=== PATIENT | female | born 1955 | race Caucasian/White ===

== ENCOUNTER → 2017-01-02 | Outpatient (CLI) | payer OTHER ==
--- NOTE | 2017-01-03 07:56 | MAMMOGRAPHY REPORT ---
BILATERAL DIGITAL SCREENING MAMMOGRAM WITH CAD: 01/02/2017 CLINICAL HISTORY: Routine screening examination. TECHNIQUE: Bilateral CC and MLO views were obtained. Current study was also evaluated with a Compute r Aided Detection (CAD) system. COMPARISON: Comparison is made to exams dated: 03/04/2015 mammogram, 02/27/2014 mammogram, 04/08/2012 mammogram, 04/07/2011 mammogram, 03/18/2010 mammogram - [facility], and 12/11/2007. BREAST COMPOSITION: There are scattered areas of fibroglandular density in both breasts. FINDINGS: The parenchymal pattern is unchanged. No developing mass, architectural distortion or clus ter of suspicious microcalcifications is seen in either breast. IMPRESSION: ACR BI-RADS CATEGORY 2: BENIGN There is no mammographic evidence of malignancy. A 1 year screening mammogram is recommended. The pa tient will receive written notification of the results. Approximately 10% of breast cancers are not detected with mammography. A negative mammographic report should not delay biopsy if a clinically suggestive mass is present. Tia Villafuerte M.D. ay/:01/02/2017 16:46:27 Fire And Safety Helper: Elsa SILVESTRE(R)(M), [facility] letter sent: Normal 1/2 BI-RADS Code: ACR BI-RADS Category 2: Benign
== END | disposition home or self-care (01) ==
LOC: C.MAMM 16:07
PROVIDERS: ATTEND Family Medicine
DX: Z12.31 Encounter for screening mammogram for malignant neoplasm of breast (principal)

== ENCOUNTER 2022-02-24 05:14 | Observation (INO) ==
--- NOTE | 2022-02-16 09:46 | PAT Medication Instructions ---
Medication Instructions Date of Service February 16, 2022 Home Medications cholecalciferol (vitamin D3) 25 mcg (1,000 unit) capsule 1,000 units PO QAM duloxetine 20 mg capsule,delayed release (Cymbalta) 60 mg PO QAM zolpidem 5 mg tablet (Ambien) 10 mg PO HS lorazepam 1 mg tablet 1 mg PO UD PRN Continue as directed lorazepam 1 mg tablet 1 mg PO UD PRN(if needed) DO NOT take the morning of surgery cholecalciferol (vitamin D3) 25 mcg (1,000 unit) capsule 1,000 units PO QAM Take morning of surgery With a small sip of water, OTHERWISE NOTHING TO EAT OR DRINK AFTER MIDNIGHT: duloxetine 20 mg capsule,delayed release (Cymbalta) 60 mg PO QAM Take evening before surgery zolpidem 5 mg tablet (Ambien) 10 mg PO HS Other Notes If you have any questions please call us at [phone] or [phone] or [phone] or [phone]
--- NOTE | 2022-02-17 11:50 | Anesthesiology Consultation ---
Date of Service February 17, 2022 Assessment & Plan (1) Encounter for pre-operative examination: - difficult IV stick reported by pt, no difficulties at PAT appt. - severe anxiety regarding procedure. - Outpatient joint assessment: Patient is currently scheduled for inpatient pathway. If re-evaluated pending system levels during current pandemic/surgeon requests outpatient pathway, patient states will be staying overnight and this would then be further reviewed. Chart Review Chart Review: Acceptable Risk for Surgery and Patient seen in Pre Admission Testing Teaching & Discussion Pre-Anesthesia Teaching/Discussion Notes: Instructed NPO after midnight before surgery, except medications with 15 cc of water. Medication instructions provided according to the [facility] guidelines. History Surgery Operation Date: 02/24/22 10:40 Proposed Procedures p Left Total Hip Arthroplasty - Barry Thomas MD Height/Weight Height: 5 ft 1 in Weight: 60 kg Allergies Allergy/AdvReac Type Severity Reaction Status Date / Time adhesive Allergy Intermediate retirement Verified 02/16/22 09:02 redness and irritation No Known Drug Allergies Allergy no known Verified 02/16/22 09:02 drug allergies Opioids - Morphine Analogues AdvReac Intermediate nausea and Verified 02/17/22 12:06 vomiting Medications Home Medications Medication Instructions Recorded Confirmed Last Taken cholecalciferol (vitamin D3) 25 1,000 units PO QAM 12/31/18 02/16/22 07/12/20 08:00 mcg (1,000 unit) capsule duloxetine 20 mg capsule,delayed 60 mg PO QAM 12/09/21 02/16/22 Unknown release (Cymbalta) zolpidem 5 mg tablet (Ambien) 10 mg PO HS 12/09/21 02/16/22 Unknown lorazepam 1 mg tablet 1 mg PO UD PRN anxiety 02/16/22 02/16/22 Unknown Past Medical History Medical History Anxiety Depression severe major depression. Gastric ulcer HX 2020 GERD (gastroesophageal reflux disease) controlled, stable per pt Hiatal hernia Irritable bowel syndrome with constipation Medical marijuana use Nausea and vomiting after administration of anesthetic agent denies needing scop patch Patient denies h/o stroke, seizures, heart attack, heart failure, DM, HTN, blood clots or blood transfusions. Exercise / Class Metabolic Activity II 4-5 Yardwork/Stairs/Walk up hill (denies CP or SOB with 1 FOS) Past Family History Family History Mother Alzheimer disease Breast cancer Colorectal cancer Father FHx: stomach cancer Malignant neoplasm of stomach Other No family history of adverse response to anesthesia Denies family history of Ovarian cancer Prostate cancer Myocardial infarction Bleeding disorder Past Surgical History Surgical History History of colonoscopy History of dilatation and curettage History of esophagogastroduodenoscopy (EGD) History of laparoscopy multiple History of operative procedure on hip gel injection through orthopedics. History of tonsillectomy History of tooth extraction History of total abdominal hysterectomy with removal of both ovaries Past Anesthesia History No Hx of Anesthesia Complications and No Family Hx of Anesthesia Complications History of PONV No Hx of Motion Sickness and History of PONV (denies needing scop patch) Social History Smoking Status: Former smoker tobacco type: cigarettes Do You Dip or Chew Tobacco: No Smoking End Date: QUIT > 30 YRS AGO Hx Alcohol Use: No Hx Substance Use: Yes ([employer]APES [employer]- ADVISED) substance use type: marijuana Review of Systems Rare snoring, denies witnessed apneas. Occasional palpitations with anxiety, denies change or worsening. Patient denies chest pain, shortness of breath, dyspnea on exertion, fever, chills, cough, or wheezing. Physical Exam Vital Signs Vitals BP 106/72 P 68 TEMP 97.8 SP02 100% on RA RESP 18 Physical Full cervical extension range of motion without pain TMD 3.5 finger breadths Mallampati Score 2 Dentition: intact, chipped tooth lower right front, permanent bridge upper left; denies loose teeth, caps/crowns or implants Lungs: normal respiratory effort. Clear throughout to auscultation, no adventitious breath sounds Cardiac: regular rate and rhythm, no murmurs noted Carotid arteries: negative bruit bilat Lab Results Anesthesia Preop Results Results Anesthesia Widget: WBC 4.26 K/ul (4.8-10.8) L 02/17/22 Hgb 13.5 g/dl (12.0-16.0) 02/17/22 Hct 39.9 % (34.1-44.9) 02/17/22 Plt 256 K/uL (130-400) 02/17/22 Na 140 mmol/L (136-145) 02/17/22 K 4.7 mmol/L (3.5-5.1) 02/17/22 Cl 105 mmol/L (98-107) 02/17/22 CO2 31 mmol/L (21-32) 02/17/22 BUN 16 mg/dl (6-23) 02/17/22 Creat 0.96 mg/dl (0.6-1.2) 02/17/22 Glucose Level 100 mg/dl (70-99(Fasting)) H 02/17/22 PT 11.1 Seconds (9.0-12.0) 02/17/22 PTT 30.0 Seconds (21.0-31.0) 02/17/22 INR 1.0 (0.9-1.1) 02/17/22 Blood Type A Positive 02/17/22 Antibody Screen NEGATIVE 02/17/22 Testing Electrocardiogram Date: 02/17/22 Sinus rhythm with short AR, rate 66 bpm No significant change vs 02/26/2020 EKG Chest X-Ray Date: 02/17/22 No lines and tubes are seen. The cardiomediastinal silhouette is normal. The lungs are clear. No evidence of pleural effusion or pneumothorax. Thoracolumbar scoliosis is again seen. IMPRESSION: No acute chest disease. Cervical Spine Date: 12/26/21 1. No fractures within the cervical spine. 2. Interval progression of the degenerative disc disease most pronounced at the C4-C5 and C5-C6 levels as described above. 3. There is mild reversal of the normal lordotic curvature due to the multilevel spondylolisthesis. COVID-19 Risk Screen Screening Information COVID-19 Screen Date: 02/17/22 Exposure 21 Days Family/Household +COVID Last 21 Days: No Exposure 10 Days Any COVID Exposure Last 10 Days: No Symptoms Last 10 Days Experienced COVID Sx Last 10 Days: No + COVID 0-90 Days COVID + in Last 0-90 Days: No
[2022-02-24] MEDS ORDERED: ceFAZolin 2000MG 2,000 MG/15 ML SYR IV SCH (06:00)
[2022-02-24] MEDS ORDERED: CeleBREX 200 MG CAP PO SCH (06:00)
[2022-02-24] MEDS ORDERED: ACETAMINOPHEN 500 MG TAB PO SCH (06:00)
[2022-02-24] MEDS ORDERED: LR 60ML/HR IV SCH (06:00)
[2022-02-24] MEDS ORDERED: METOCLOPRAMIDE HCL 10 MG TABLET PO SCH (06:00)
[2022-02-24] MEDS ORDERED: FAMOTIDINE 20 MG TAB PO SCH (06:00)
[2022-02-24] MEDS ORDERED: LR 500ML BOLUS, THEN 15ML/HR IV SCH (06:00)
[2022-02-24] MEDS ORDERED: Scopolamine 1 MG TDSY TD SCH (06:00)
[2022-02-24] MEDS ORDERED: TRANEXAMIC ACID 1,000 MG **IV Pre-op IV SCH (06:00)
[2022-02-24] MEDS ORDERED: MIDAZOLAM HCL 1 MG/ML 2ML VIAL ONE (06:37)
[2022-02-24] MEDS ORDERED: fentaNYL citrate 100 MCG/2 ML VIAL ONE (06:37)
[2022-02-24] MEDS ORDERED: BUPIVACAINE 0.5 % 5 MG/1 ML PF 10ML VIAL ONE (06:44)
[2022-02-24] MEDS ORDERED: MoRPHine SULFATE PF 1 MG/ML 10 ML AMP/VIAL ONE (06:48)
--- NOTE | 2022-02-24 06:56 | History & Physical Bridge Note ---
Date of Service February 24, 2022 History & Physical Bridge Note I have examined the patient, reviewed the History & Physical and in the interval since the performance of the History & Physical I have noted the following changes of clinical significance: no changes noted
[2022-02-24] MEDS ORDERED: EPINEPHrine INJ 1 MG/ML AMP ONE (06:58)
[2022-02-24] MEDS ORDERED: BUPIVACAINE 0.5 % 5 MG/1 ML MPF 30ML VIAL ONE (06:58)
[2022-02-24] MEDS ORDERED: NO NARCOTICS OR SEDATIVES SCH (07:00)
[2022-02-24] MEDS ORDERED: diphenhydrAMINE 50 MG/ML VIAL IV PRN (07:00)
[2022-02-24] MEDS ORDERED: LACTATED RINGER'S 500 ML IV PRN (07:00)
[2022-02-24] MEDS ORDERED: MoRPHine SULFATE PF 1 MG/ML 10 ML AMP/VIAL INT SPINAL ONE (07:00)
[2022-02-24] MEDS ORDERED: HYDROmorphone INJ 0.5 MG/0.5 ML SYR IV PRN (07:00)
[2022-02-24] MEDS ORDERED: NALOXONE HCL 0.08 MG in SYRINGE 1.8 ML IV PRN (07:00)
[2022-02-24] MEDS ORDERED: ePHEDrine sulfate 50 MG/ML AMP IV PRN (07:00)
[2022-02-24] MEDS ORDERED: NALOXONE HCL 1 MG in SODIUM CHLORIDE 0.9% 1000ML 1,000 ML IV PRN (07:00)
[2022-02-24] MEDS ORDERED: NALOXONE HCL 0.4 MG/1 ML VIAL/CARP IV PRN ×2 (07:00→10:56)
[2022-02-24] MEDS ORDERED: SODIUM CHLORIDE 0.9% 1000ML 1,000 ML IV SCH (07:00)
[2022-02-24] MEDS ORDERED: ONDANSETRON INJ 2 MG/ML 2 ML VIAL IV PRN ×2 (07:00→10:56)
[2022-02-24] MEDS ORDERED: DC INTRASPINAL MORPHINE SCH (07:00)
[2022-02-24] MEDS ORDERED: NALBUPHINE HCL INJ 10 MG/ML AMP IV PRN (07:00)
[2022-02-24] MEDS ORDERED: ONDANSETRON INJ 2 MG/ML 2 ML VIAL ONE (07:17)
[2022-02-24] MEDS ORDERED: PROPOFOL IV EMULSION 10 MG/ML 20 ML VIAL IV ONE (07:17)
[2022-02-24] MEDS ORDERED: PHENYLEPHRINE 100MCG/ML 5ML SYR ONE (07:45)
--- NOTE | 2022-02-24 09:03 | Operative Report ---
PG Post Operative Report Pre & Post Diagnosis Operation Date: 02/24/22 07:00 Pre-Op Diagnosis: Left Hip Degenerative Joint Disease Post-Op Diagnosis: Left Hip Degenerative Joint Disease I identified the patient and participated in the time-out.: Yes Procedure Operation Date: 02/24/22 07:00 Actual Procedures p Left Total Hip Arthroplasty(Left) - Barry Thomas MD Surgeon Barry Thomas MD Lining Stuffer Gera Collado PA-C Estimated Blood Loss 100 Findings Consistent with Post-Op Diagnosis Operative findings revealed advanced arthritic left hip with very dysplastic hip with flattening of the femoral head, very shortened femoral neck, dysplastic acetabulum. Moderate-sized joint effusion. Diffuse osteopenia. Fluids 1200 cc Specimens Left femoral head sent for pathology Drains None Anesthesia Type Spinal MAC Complications none Disposition Accompanied Patient To Recovery: No Indications Patient is a 66-year-old female with a lifelong history of left hip problems of pain and discomfort. She was treated as a child in a cast for a period of time for unspecified reasons. She could have had some type of hip dysplasia. Over the past several years she developed increased pain discomfort to have more more difficulty getting around. X-rays show advanced arthritis with underlying dysplastic hip. The patient was indicated for surgical treatment. Description of Procedure Operative implants consist of: 1 Biomet G7 size 48 mm acetabular shell. 2. 6.5 cancellous acetabular screws 1 of 35 mm length 1 to 20 mm length. 3. Sawyer hole lithographic press feeder. 4. Highly cross-linked polyethylene liner 48 mm outer diameter and 32 mm diameter. 5. DePuy Douglas size 2 standard offset femoral stem. 6. +5/32 mm ceramic articular ball. The patient was taken the operating, identified, placed on the operating table supine position protectors were properly padded identified by anesthesia team. A spinal anesthetic and been implemented holding area. Gould catheter was placed in sterile fashion. Patient then placed in the right lateral decubitus position. Axillary roll was placed. Stulberg positioner was used for positioning. Left hip and leg were then prepped and draped in usual sterile fashion. A posterior lateral posterior left hip was then performed to a curvilinear incision centered over the greater trochanter. Sharp dissection Through subcutaneous is down low the IT band gluteal fascia the IT band gluteal fascia was lysed longitudinally in line with skin incision. The underlying greater bursa was excised. The piriformis and external rotators along with the posterior hip joint capsule released from the posterior aspect hip as a single layer. Great care was taken throughout the procedure protect the sciatic nerve at all times. The posterior hip capsule was retained for later repair. Hip was internally rotated and dislocated. Femoral neck osteotomy cut was made with Final Cut about 7 mm above the lesser trochanter. Femoral head was removed and sent for pathology the femur was retracted anteriorly. Attention drawn the acetabulum. The acetabulum was excised. Pulmonary fat was excised. Sequential reaming the acetabular was then performed again with size 41 and progressing up to a 47. I did ream some with a 48 reamer and then placed a 48 mm cup in about 40 degrees lateral opening and 20 degrees of anteversion. It was fixed with two 6.5 cancellous acetabular screws. Trial liner was placed. Attention drawn the femur. The proximal femur was entered with a Viropro cutter followed by canal finder and lateralizing reamer. I then broached beginning with the size 1 broach. Identified all likely get down nicely her femur was pretty narrow particularly superiorly. I did 1 sacrifice possible fracture. We then trialed the hip and the +5 articular ball seem to create appropriate stability. Soft tissue tension seemed appropriate as well. Not see the excessively tight. The hip was little bit loose to start out and I did certainly want her hip to be stable. Leg lengths seem equal. We elect to place these implants. All trial implants were removed. Sawyer hole lithographic press feeder was placed but highly cross-linked polyethylene liner was placed. A small cement restrictor was placed down the canal. A double batch Palacos G cement was mixed and injected in the canal. DePuy Douglas size 2 standard offset cemented femoral stem was placed with a centralizer. UltraFrame cement was removed. Once the cement hardened I placed a +5/32 mm ceramic articular ball. Hip was located once again found to be stable. Attention drawn toward closing. Was irrigated cosigns pulsatile lavage solution. We did inject locally with 50 cc of half percent Marcaine with epinephrine. Posterior capsule and external rotators were repaired through drill holes in the posterior trochanter as a single layer. The IT band and gluteal fascia then closed with #1 PDS suture running fashion the subcutaneous tissue then closed with 2 layers of deep layer #1 Vicryl suture and subcutaneous tissue 2 Dexon suture in buried interrupted fashion the skin was closed skin shad provided. Dry sterile dressing was Xeroform, 4 fours, ABD pad, foam tape was applied. Patient then transferred to the recovery in stable condition. Patient tolerated procedure well and no complications. Gera Collado, physician nurses medical assistants phlebotomists, was present for the entire procedure. His assistance was required for proper patient positioning, prepping and draping, surgical exposure, retraction, perform the technical details of the operation, placing the implants, closure of the wound, placement of sterile bandage. I attest to the content of the Intraoperative Record and any orders documented therein. Any exceptions are noted below.
--- NOTE | 2022-02-24 09:32 | XRay Report ---
XR hip 1V LT w pelvis HISTORY: 66 years-old Female IN PACU - Post Surgical left hip total joint arthroplasty COMPARISON: 01/26/2022 TECHNIQUE: AP view of the pelvis with crosstable lateral view of the left hip FINDINGS: Mild osteoarthritis of the right hip. Demineralized appearance of the bones. Left hip total joint art hroplasty demonstrates satisfactory alignment. Expected postoperative soft tissue swelling with deep tissue air and lateral skin shad. Urinary bladder catheter is noted. IMPRESSION: Left hip total joint arthroplasty with expected postoperative changes. ACT 112: Negative or not required by law. The above report was generated using voice recognition software. It may contain grammatical, syntax o r spelling errors. Electronically signed by: Casey Kenyon M.D. 02/24/2022 9:30 AM
--- NOTE | 2022-02-24 09:42 | Anesthesiology Progress Note ---
Date of Service February 24, 2022 Anesthesia Post Procedure Vital Signs Vital Signs: Temp Pulse Pulse Resp BP Pulse Ox O2 Del Method 02/24/22 09:35 36.3 C L 87 15 109/68 100 Room Air 02/24/22 09:25 85 15 118/71 100 Room Air 02/24/22 09:15 84 20 109/57 L 100 Oxymask 02/24/22 09:05 86 15 113/71 100 Oxymask 02/24/22 08:55 90 16 111/70 100 Oxymask 02/24/22 08:47 36.1 C L 82 11 L 102/70 100 Oxymask 02/24/22 05:42 36.9 C 80 18 121/72 98 Room Air O2 Flow Rate 02/24/22 09:35 02/24/22 09:25 02/24/22 09:15 4 02/24/22 09:05 4 02/24/22 08:55 6 02/24/22 08:47 6 02/24/22 05:42 Pain Intensity Left Hip: Pain Intensity: 3 Transfer of Care Handoff Completed per policy Notes Mental Status: alert / awake / arousable and participated in evaluation Patient Amnestic to Procedure: Yes Nausea / Vomiting: adequately controlled Pain: adequately controlled Airway Patency, RR, SpO2: stable & adequate BP & HR: stable & adequate Hydration State: stable & adequate Anesthetic Complications: no major complications apparent and Pt Satisfied with anesthetic care
[2022-02-24] MEDS ORDERED: METOCLOPRAMIDE HCL INJ 5 MG/ML 2 ML VIAL IV PRN (10:56)
[2022-02-24] MEDS ORDERED: bisacodyL 10 MG SUPP PR PRN (10:56)
[2022-02-24] MEDS ORDERED: ALUMINUM/MAGNESIUM SUSP 30 ML UDC PO PRN (10:56)
[2022-02-24] MEDS ORDERED: DOCUSATE SODIUM/SENNA 50/8.6MG TAB PO SCH (10:56)
[2022-02-24] MEDS ORDERED: MAGNESIUM HYDROXIDE SUSP 30 ML UDC PO PRN (10:56)
[2022-02-24] MEDS: MULTIVITAMIN TAB PO SCH (11:29)
[2022-02-24] MEDS: CHOLECALCIFEROL 1,000 UNITS 25 MCG TAB PO SCH (11:29)
[2022-02-24] MEDS: ASPIRIN 81 MG ECTAB PO SCH ×2 (11:29→21:25)
[2022-02-24] MEDS: SODIUM CHLORIDE 0.9% 1000ML 1,000 ML IV SCH ×2 (11:29→21:27)
[2022-02-24] MEDS: DULoxetine HCL 60 MG CAP PO SCH ×2 (11:29→11:33)
[2022-02-24] MEDS: KETOROLAC TROMETHAMINE 15 MG/ML VIAL IV SCH ×3 (11:30→23:31)
[2022-02-24] MEDS: DOCUSATE SODIUM 100 MG CAP PO SCH ×2 (11:57→21:25)
[2022-02-24] MEDS ORDERED: TRANEXAMIC ACID / 0.7% NACL 1,000 MG/100 ML BAG IV SCH (15:00)
[2022-02-24] MEDS: ACETAMINOPHEN 500 MG TAB PO SCH ×2 (16:43→21:26)
[2022-02-24] MEDS: ceFAZolin 1000MG 1,000 MG/7.5 ML SYR IV SCH (18:51)
[2022-02-24] MEDS: Scopolamine CHECK PATCH PLACEMENT SCH (18:52)
[2022-02-24] MEDS: ASCORBIC ACID 500 MG TAB PO SCH (18:52)
[2022-02-24] MEDS ORDERED: SENNA 8.6 MG TAB PO SCH (21:00)
[2022-02-25] MEDS ORDERED: LORazepam 1 MG TAB PO PRN (01:01)
[2022-02-25] MEDS ORDERED: traMADol HCL 50 MG TABLET PO PRN (01:01)
[2022-02-25] MEDS ORDERED: HYDROmorphone INJ 0.5 MG/0.5 ML SYR IV PRN (01:01)
[2022-02-25] MEDS: ceFAZolin 1000MG 1,000 MG/7.5 ML SYR IV SCH (02:01)
[2022-02-25] MEDS: Scopolamine CHECK PATCH PLACEMENT SCH ×2 (02:01→09:30)
[2022-02-25] MEDS: ACETAMINOPHEN 500 MG TAB PO SCH (05:43)
[2022-02-25] MEDS: KETOROLAC TROMETHAMINE 15 MG/ML VIAL IV SCH ×2 (05:43→12:29)
[2022-02-25] MEDS ORDERED: dexAMETHasone 10 MG in SYRINGE 0 ML IV SCH (08:00)
--- NOTE | 2022-02-25 08:55 | Progress Notes ---
DATE OF NOTE: 02/25/2022 SUBJECTIVE: A 66-year-old white female postoperative day 1 from a left hybrid total hip replacement. She is doing well. Feeling great. Hoping to go home. No chest pain or shortness of breath. Not feeling dizzy or lightheaded. OBJECTIVE: VITAL SIGNS: Temperature 37.2. Vital signs are stable. GENERAL: Shows a pleasant, middle-aged female. She is sitting up in bed, looks completely comfortab le. LUNGS: Clear to auscultation. HEART: Regular rate and rhythm. ABDOMEN: Soft, nontender, nondistended. EXTREMITIES: Grossly neurovascularly intact except as follows. Examination of the left hip reveals the leg lengths to be equal. Dressing is clean, dry and intact. She can dorsiflex and plantarflex her foot appropriately. She is neurologically intact. LABORATORY DATA: Labs are pending. ASSESSMENT: A 66-year-old white female postoperative day 1 from left hip replacement, doing well. P ain is controlled. Hip is located. She is neurologically intact. PLAN: 1. DVT prophylaxis includes thigh-high TEDs, SCDs, and aspirin twice a day. 2. PT/OT, weightbear as tolerated. Left total hip protocol. 3. Pain control, doing okay with current pain regimen. 4. Disposition: Plan to discharge to home with some home health later today if does okay in therapy . Job ID: [id number]
[2022-02-25 08:59] LABS: Basophils # (auto) 0.01 K/uL (0-0.2); Basophils % (auto) 0.2 %; Eosinophils # (auto) 0.03 K/uL (0-0.50); Eosinophils % (auto) 0.5 %; Hematocrit (blood only) 33.4 % (34.1-44.9); Hemoglobin 11.1 g/dl (12.0-16.0); Immature Granulocytes # (auto) 0.02 K/uL (0.00-0.02); Immature Granulocytes % (auto) 0.4 %; Lymphocytes # (auto) 0.75 K/uL (1.2-3.4); Lymphocytes % (auto) 13.7 %; Mean Corpuscular Hemoglobin 29.6 pg (25.0-34.0); Mean Corpuscular Hgb Conc 33.2 g/dL (32.0-36.0); Mean Corpuscular Volume 89.1 fL (80.0-100.0); Mean Platelet Volume 9.9 fL (9.4-12.3); Monocytes # (auto) 0.36 K/uL (0.24-0.82); Monocytes % (auto) 6.6 %; Neutrophils # (auto) 4.32 K/uL (1.4-6.5); Neutrophils % (auto) 78.6 %; Platelet Count 201 K/uL (130-400); RDW Coefficient of Variation 12.1 % (11.5-14.5); RDW Standard Deviation 39.3 fL (36.4-46.3); Red Blood Count 3.75 M/uL (3.93-5.22); White Blood Count 5.49 K/ul (4.8-10.8)
[2022-02-25 09:28] LABS: BUN Creatinine Ratio 13.8 (10-20); Creatinine Clr Calc Pharmacy 55.6 ml/min; Est GFR (African American) 87.8 ml/min; Est GFR (Non-African American) 75.8 ml/min; Potassium 3.4 mmol/L (3.5-5.1)
[2022-02-25] MEDS: ASCORBIC ACID 500 MG TAB PO SCH (09:30)
[2022-02-25] MEDS: MULTIVITAMIN TAB PO SCH (09:30)
[2022-02-25] MEDS: ASPIRIN 81 MG ECTAB PO SCH (09:30)
[2022-02-25] MEDS: DOCUSATE SODIUM 100 MG CAP PO SCH (09:30)
[2022-02-25] MEDS: DULoxetine HCL 60 MG CAP PO SCH (09:30)
[2022-02-25] MEDS: CHOLECALCIFEROL 1,000 UNITS 25 MCG TAB PO SCH (09:30)
[2022-02-25] MEDS ORDERED: ZOLPIDEM TARTRATE 10 MG TAB PO SCH (21:00)
--- NOTE | 2022-02-28 13:21 | Discharge Summary ---
Date of Service February 28, 2022 Discharge Data Procedures Performed Operation Date: 02/24/22 07:00 Actual Procedures p Left Total Hip Arthroplasty(Left) - Barry Thomas MD Hospital Course (1) Status post total replacement of left hip: This is a 66 year old patient admitted on 02/24/22 and underwent total hip arthroplasty. She tolerated the procedure well and there were no complications. Transferred to the PACU post op and later to the orthopedic floor for further care. She was given ancef for antibiotic prophylaxis. She was also given CHRISTA stockings, SCDs, and aspirin for DVT prophylaxis. Hemoglobin, hematocrit, and vital signs were monitored during her hospital stay and remained stable. Did not require any blood transfusions. There were no complications during her hospital stay. By post op day #1 the patient was tolerating a regular diet, pain was reasonably controlled with oral pain medicine, and she was participating in physical therapy. On post op day #1 the patient was discharged home and set up with home health care. She was given printed discharge instructions including prescriptions for extra strength tylenol, aspirin, ketorolac, zofran, senokot, and tramadol. Continue physical therapy, weight bearing as tolerated. Continue CHRISTA stockings. Continue hip precautions. Follow up approximately 2 weeks post op or sooner if there are problems or concerns. Coding Level of Care Code None Diagnoses Status post total replacement of left hip Z96.642
== END 2022-02-25 12:30 | disposition home health service (06) ==
LOC: ASU 05:14 → PACUINP 05:14 → 3E 12:51
DX: Z80.0 Family history of malignant neoplasm of digestive organs; Z80.3 Family history of malignant neoplasm of breast; Z88.5 Allergy status to narcotic agent; M65.9 Synovitis and tenosynovitis, unspecified; M16.12 Unilateral primary osteoarthritis, left hip; Z87.891 Personal history of nicotine dependence; Z79.899 Other long term (current) drug therapy